=== PATIENT | male | born 1960 | race Hispanic/Latino ===

== ENCOUNTER → 2018-06-11 | Outpatient (CLI) | payer OTHER | END | disposition home or self-care (01) | LOC: OIH 13:48 | DX: Z13.6 Encounter for screening for cardiovascular disorders (principal) | CPT/HCPCS: 75571 ==

== ENCOUNTER 2020-06-12 08:30 | Inpatient (IN) | payer OTHER ==
[2020-06-12] VITALS (44 sets, daily range): BP systolic 78–164; BP diastolic 34–90
[~2020-06-12] VITALS: Ht 165.1 cm; Wt 82.2 kg
[~2020-06-12 08:30] MED LIST: 0.9%NACL 1000ML 1,000 ML IV ONE; OMEP40CA21 PO; SUCR1TAB2 PO
[2020-06-12] MEDS ORDERED: ONDA4TAB4 PO (10:49)
[2020-06-12] MEDS ORDERED: PROPOFOL 10 MG/ML 20ML VIAL IV ONE ×2 (12:16→16:06)
[2020-06-12] MEDS ORDERED: SUCCINYLCHOLINE CHLORIDE 20 MG/ML 10 ML VIAL ONE (12:32)
[2020-06-12] MEDS ORDERED: FENTANYL CITRATE PF 50 MCG/1 ML 2ML VIAL ONE (13:03)
[2020-06-12 13:29] LABS: ABG BASE EXCESS -6.5 mmol/L (-2.0-3.0); ABG HCO3 18.4 mmol/L (21.0-28.0); ABG PCO2 34 mmHg (35-48)
[2020-06-12] MEDS ORDERED: NALOXONE HCL 0.4 MG/1 ML ML ONE (14:10)
[2020-06-12] MEDS ORDERED: MEPERIDINE-PF 25 MG/ML SYG ONE (14:37)
[2020-06-12] MEDS ORDERED: ACETAMINOPHEN 325 MG TAB PO PRN (15:15)
[2020-06-12 15:58] LABS: ABG BASE EXCESS -8.2 mmol/L (-2.0-3.0); ABG OXYGEN SATURATION 82.9 % (95.0-99.0); ABG PCO2 34 mmHg (35-48)
[2020-06-12] MEDS ORDERED: ESMOLOL HCL 10 MG/ML 10 ML VIAL ONE (16:02)
[2020-06-12] MEDS ORDERED: MIDAZOLAM HCL 1 MG/ML 2ML VIAL ONE (16:06)
[2020-06-12] MEDS ORDERED: ROCURONIUM 10MG/1ML SYR 10 MG/ML ML ONE (16:07)
[2020-06-12] MEDS ORDERED: METOPROLOL TARTRATE 1 MG/ML 5ML VIAL IV ONE (16:36)
[2020-06-12] MEDS ORDERED: FENTANYL CITRATE PF 0.05 MG/ML 1,000 MCG in 0.9%NACL 100ML 100 ML IVPB STA (16:45)
[2020-06-12] MEDS ORDERED: PHENYLEPHRINE HCL 10 MG in 0.9% NACL 250ML 250 ML IV PRN (16:45)
[2020-06-12] MEDS ORDERED: PROPOFOL 1000 MG/100 ML 100 ML IV STA (16:45)
[2020-06-12 16:55] LABS: HEMATOCRIT 32.3 % (42-54); MEAN CORPUSCULAR HEMOGLOBIN 28.7 pg (27.0-33.0); MEAN CORPUSCULAR HGB CONC 30.7 g/dL (32.0-36.0); MEAN CORPUSCULAR VOLUME 93.6 fL (79-99); NUCLEATED RED BLOOD CELLS 0.5 % (0.0-0.19); PLATELET COUNT (AUTO) 315 K/uL (130-400); RED BLOOD CELL COUNT(AUTO) 3.45 MIL/uL (4.50-6.20); RED CELL DISTRIBUTION WIDTH 18.5 % (11.0-15.5)
[2020-06-12 16:58] LABS: WHITE BLOOD COUNT (AUTO) 48.3 K/uL (4.8-10.8)
[2020-06-12] MEDS ORDERED: PROPOFOL 1000 MG/100 ML 100 ML IV SCH (17:00)
[2020-06-12] MEDS: FUROSEMIDE 20MG VIAL IV SCH (17:04)
[2020-06-12 17:13] LABS: CREATININE 0.8 mg/dL (0.5-1.5); POTASSIUM 4.1 mmol/L (3.5-5.1)
[2020-06-12 17:17] LABS: ALBUMIN 2.4 g/dL (3.5-5.0); BILIRUBIN,TOTAL 0.3 mg/dL (0.2-1.0); MAGNESIUM 1.1 mg/dL (1.80-2.40); TOTAL PROTEIN, SERUM 5.8 g/dL (6.0-8.3)
[2020-06-12 17:24] LABS: BAND NEUTROPHILS % (MANUAL) 6 % (0-2); LYMPHOCYTES % (MANUAL) 4 % (22-44); MONOCYTES % (MANUAL) 2 % (2-9); SEGMENTED NEUTROPHILS % 88 % (40-70)
[2020-06-12 17:25] LABS: MAN.DIFF COMMENT-IMPRESSION MANUAL DIFFERENTIAL; PLATELET MORPHOLOGY COMMENT ADEQUATE
[2020-06-12] MEDS ORDERED: METOPROLOL TARTRATE 1 MG/ML 5ML VIAL IV SCH (18:00)
[2020-06-12] MEDS ORDERED: VASOPRESSIN 20 UNITS in 0.9%NACL 100ML 100 ML IV SCH (18:30)
[2020-06-12] MEDS: LINEZOLID 600 MG/ISO-OSM 300 ML IV SCH (18:30)
[2020-06-12 18:34] LABS: URIC ACID 8.8 mg/dL (2.6-7.2)
[2020-06-12] MEDS ORDERED: PHARMACY COMMUNICATION MISC SCH (18:45)
[2020-06-12 19:18] LABS: ABG BASE EXCESS -9.5 mmol/L (-2.0-3.0); ABG HCO3 17.4 mmol/L (21.0-28.0); ABG OXYGEN SATURATION 88.9 % (95.0-99.0); ABG PCO2 42 mmHg (35-48)
[2020-06-12] MEDS ORDERED: SODIUM BICARB 50MEQ 50ML VIAL 150 ML ONE (20:00)
[2020-06-12] MEDS ORDERED: SODIUM BICARB 50MEQ 50ML VIAL IV STA (20:03)
[2020-06-12] MEDS ORDERED: MIDAZOLAM 100MG-0.9% NS 100ML 100ML BAG IV ONE (20:45)
[2020-06-12] MEDS: MEROPENEM 1 GM VIAL IVP SCH (21:05)
[2020-06-12] MEDS ORDERED: IOHEXOL-350 75 ML VIAL IV ONE (21:16)
[2020-06-12] MEDS: MICAFUNGIN 100MG+NS 100ML 100 ML IV SCH (21:49)
[2020-06-12] MEDS: PHENYLEPHRINE 100 MG/NS 250ML IV SCH ×2 (21:58)
[2020-06-12] MEDS: VASOPRESSIN 40 UNITS in 0.9%NACL 50ML 40 ML IV SCH (22:00)
[2020-06-12] MEDS: SODIUM BICARB 50MEQ 50ML VIAL 150 MEQ in WATER FOR INJECTION,STERILE 1,000 ML IV SCH (22:58)
[2020-06-12] MEDS: FENTANYL 2500MCG+NS 250ML 250 ML IV SCH (22:59)
[2020-06-12] MEDS ORDERED: MIDAZOLAM HCL 100 MG in 0.9%NACL 50ML 100 ML IV SCH (23:15)
[2020-06-12 23:27] LABS: CREATININE 1.3 mg/dL (0.5-1.5); MAGNESIUM 1.4 mg/dL (1.80-2.40); POTASSIUM 3.5 mmol/L (3.5-5.1)
[2020-06-12 23:53] LABS: ABG BASE EXCESS -3.8 mmol/L (-2.0-3.0); ABG HCO3 22.2 mmol/L (21.0-28.0); ABG OXYGEN SATURATION 90.8 % (95.0-99.0); ABG PCO2 44 mmHg (35-48)
[2020-06-13] VITALS (32 sets, daily range): BP systolic 80–169; BP diastolic 39–87
[2020-06-13] MEDS ORDERED: LIDOCAINE HCL-MPF 1% 2ML VIAL ONE (01:07)
[2020-06-13] MEDS ORDERED: POTASSIUM CHLORIDE 20MEQ/100ML 100 ML IV ONE (01:08)
[2020-06-13] MEDS ORDERED: MAGNESIUM 2GM PREMIX 50ML 50 ML IV ONE (01:08)
[2020-06-13] MEDS: MEROPENEM 1 GM VIAL IVP SCH ×3 (01:11→17:30)
[2020-06-13] MEDS ORDERED: LIDOCAINE HCL-MPF 1% 2ML VIAL IV PRN (01:15)
[2020-06-13] MEDS ORDERED: POTASSIUM CHLORIDE 20MEQ/100ML 100 ML IV PRN (01:15)
[2020-06-13] MEDS ORDERED: 0.9%NACL 1000ML 1,000 ML IV ONE (01:18)
[2020-06-13] MEDS ORDERED: 0.9%NACL 100ML 200 ML IV ONE (01:31)
[2020-06-13] MEDS: FUROSEMIDE 20MG VIAL IV SCH ×2 (02:58→16:09)
[2020-06-13 05:16] LABS: BASOPHILS % (AUTO) 0.1 % (0.0-5.0); HEMATOCRIT 28.9 % (42-54); LYMPHOCYTES % (AUTO) 0.6 % (21.0-51.0); MEAN CORPUSCULAR HEMOGLOBIN 28.3 pg (27.0-33.0); MEAN CORPUSCULAR HGB CONC 30.1 g/dL (32.0-36.0); MEAN CORPUSCULAR VOLUME 94.1 fL (79-99); MONOCYTES % (AUTO) 2.8 % (3.0-13.0); NEUTROPHILS % (AUTO) 92.3 % (40.0-77.0); NUCLEATED RED BLOOD CELLS 0.4 % (0.0-0.19); PLATELET COUNT (AUTO) 267 K/uL (130-400); RED BLOOD CELL COUNT(AUTO) 3.07 MIL/uL (4.50-6.20); RED CELL DISTRIBUTION WIDTH 18.5 % (11.0-15.5)
[2020-06-13 05:30] LABS: WHITE BLOOD COUNT (AUTO) 53.9 K/uL (4.8-10.8)
[2020-06-13 05:33] LABS: ALBUMIN 2.1 g/dL (3.5-5.0); BILIRUBIN,TOTAL 0.3 mg/dL (0.2-1.0); CREATININE 1.5 mg/dL (0.5-1.5); MAGNESIUM 2.4 mg/dL (1.80-2.40); PHOSPHORUS 5.3 mg/dL (2.5-4.9); POTASSIUM 4.2 mmol/L (3.5-5.1); TOTAL PROTEIN, SERUM 5.3 g/dL (6.0-8.3)
[2020-06-13 05:34] LABS: INR 1.43 (0.85-1.15); PROTHROMBIN TIME 15.1 SEC (9.6-11.6)
[2020-06-13 05:46] LABS: CRP QUANTITATIVE 292.4 mg/L (0.00-9.0)
[2020-06-13] MEDS: LINEZOLID 600 MG/ISO-OSM 300 ML IV SCH ×2 (06:40→19:16)
[2020-06-13 06:47] LABS: ABG BASE EXCESS -0.5 mmol/L (-2.0-3.0); ABG HCO3 27.1 mmol/L (21.0-28.0); ABG OXYGEN SATURATION 91.3 % (95.0-99.0); ABG PCO2 56 mmHg (35-48)
[2020-06-13] MEDS: FENTANYL 2500MCG+NS 250ML 250 ML IV SCH (06:54)
[2020-06-13] MEDS: VASOPRESSIN 40 UNITS in 0.9%NACL 50ML 40 ML IV SCH (06:55)
[2020-06-13] MEDS ORDERED: ENOXAPARIN SODIUM 40 MG/0.4 ML SYRINGE SQ SCH (09:00)
[2020-06-13] MEDS ORDERED: ENOXAPARIN SODIUM 30 MG/0.3 ML SQ SCH (09:00)
[2020-06-13] MEDS ORDERED: PANTOPRAZOLE 40 MG/VIAL IVP SCH (09:00)
[2020-06-13] MEDS ORDERED: IOHEXOL-350 75 ML VIAL IV ONE (09:08)
[2020-06-13] MEDS ORDERED: PHARMACY COMMUNICATION MISC SCH ×2 (12:15→17:00)
[2020-06-13] MEDS ORDERED: HEPARIN 25,000 UNITS/250ML D5W 250 ML IV PRN (12:30)
[2020-06-13] MEDS: HYDROCORTISONE SOD SUCCINATE 100 MG/2 ML VIAL IV SCH ×2 (12:49→17:30)
[2020-06-13 14:10] LABS: INR 1.76 (0.85-1.15); PROTHROMBIN TIME 18.2 SEC (9.6-11.6)
[2020-06-13 14:12] LABS: PARTIAL THROMBOPLASTIN TIME 35.7 SEC (26.3-35.5)
[2020-06-13] MEDS ORDERED: NOREPINEPHRIN 4MG/NS 250ML 250 ML IV SCH (16:15)
[2020-06-13] MEDS: SODIUM BICARB 50MEQ 50ML VIAL 150 MEQ in WATER FOR INJECTION,STERILE 1,000 ML IV SCH (16:26)
[2020-06-13 16:41] LABS: BASOPHILS % (AUTO) 0.1 % (0.0-5.0); HEMATOCRIT 32.5 % (42-54); LYMPHOCYTES % (AUTO) 0.6 % (21.0-51.0); MEAN CORPUSCULAR HEMOGLOBIN 28.1 pg (27.0-33.0); MEAN CORPUSCULAR HGB CONC 29.8 g/dL (32.0-36.0); MEAN CORPUSCULAR VOLUME 94.2 fL (79-99); NEUTROPHILS % (AUTO) 92.7 % (40.0-77.0); NUCLEATED RED BLOOD CELLS 0.3 % (0.0-0.19); PLATELET COUNT (AUTO) 277 K/uL (130-400); RED BLOOD CELL COUNT(AUTO) 3.45 MIL/uL (4.50-6.20); RED CELL DISTRIBUTION WIDTH 18.6 % (11.0-15.5)
[2020-06-13 16:51] LABS: WHITE BLOOD COUNT (AUTO) 46.3 K/uL (4.8-10.8)
[2020-06-13 16:57] LABS: CREATININE 1.2 mg/dL (0.5-1.5); POTASSIUM 4.1 mmol/L (3.5-5.1)
[2020-06-13 17:01] LABS: ALBUMIN 2.2 g/dL (3.5-5.0); BILIRUBIN,TOTAL 0.4 mg/dL (0.2-1.0)
[2020-06-13] MEDS ORDERED: ALBUMIN (HUMAN) 25% 50 ML IV SCH (17:17)
[2020-06-13 17:30] LABS: BAND NEUTROPHILS % (MANUAL) 12 % (0-2); LYMPHOCYTES % (MANUAL) 1 % (22-44); MAN.DIFF COMMENT-IMPRESSION MANUAL DIFFERENTIAL; MONOCYTES % (MANUAL) 3 % (2-9); SEGMENTED NEUTROPHILS % 84 % (40-70)
[2020-06-13 19:13] LABS: INR 2.18 (0.85-1.15); PARTIAL THROMBOPLASTIN TIME 68.5 SEC (26.3-35.5); PROTHROMBIN TIME 22.1 SEC (9.6-11.6)
[2020-06-13] MEDS ORDERED: PHARMACY COMMUNICATION MISC STA (19:47)
[2020-06-13] MEDS: PANTOPRAZOLE 40 MG/VIAL IVP SCH (21:50)
[2020-06-13] MEDS: MICAFUNGIN 100MG+NS 100ML 100 ML IV SCH (21:50)
[2020-06-13] MEDS ORDERED: 0.9% NACL 250ML 250 ML IV ONE (21:54)
[2020-06-13] MEDS: PHENYLEPHRINE 100 MG/NS 250ML IV SCH ×2 (23:04)
[2020-06-14] VITALS (35 sets, daily range): BP systolic 81–137; BP diastolic 46–84
[2020-06-14] MEDS ORDERED: 0.9%NACL 100ML 100 ML IV ONE (01:17)
[2020-06-14] MEDS: MEROPENEM 1 GM VIAL IVP SCH ×3 (01:19→18:15)
[2020-06-14] MEDS: HYDROCORTISONE SOD SUCCINATE 100 MG/2 ML VIAL IV SCH ×4 (01:19→18:15)
[2020-06-14 02:05] LABS: BASOPHILS % (AUTO) 0.4 % (0.0-5.0); HEMATOCRIT 24.9 % (42-54); LYMPHOCYTES % (AUTO) 0.9 % (21.0-51.0); MEAN CORPUSCULAR HEMOGLOBIN 28.8 pg (27.0-33.0); MEAN CORPUSCULAR HGB CONC 30.9 g/dL (32.0-36.0); MEAN CORPUSCULAR VOLUME 93.3 fL (79-99); MONOCYTES % (AUTO) 3.1 % (3.0-13.0); NUCLEATED RED BLOOD CELLS 0.3 % (0.0-0.19); PLATELET COUNT (AUTO) 231 K/uL (130-400); RED BLOOD CELL COUNT(AUTO) 2.67 MIL/uL (4.50-6.20); RED CELL DISTRIBUTION WIDTH 18.6 % (11.0-15.5)
[2020-06-14 02:10] LABS: CREATININE 1.1 mg/dL (0.5-1.5); MAGNESIUM 1.7 mg/dL (1.80-2.40); POTASSIUM 3.1 mmol/L (3.5-5.1)
[2020-06-14 02:26] LABS: WHITE BLOOD COUNT (AUTO) 38.1 K/uL (4.8-10.8)
[2020-06-14] MEDS: SODIUM BICARB 50MEQ 50ML VIAL 150 MEQ in WATER FOR INJECTION,STERILE 1,000 ML IV SCH ×2 (02:32→20:29)
[2020-06-14] MEDS: MAGNESIUM 2GM PREMIX 50ML 50 ML IV PRN (02:40)
[2020-06-14] MEDS: POTASSIUM CHLORIDE 20MEQ/100ML 100 ML IV PRN ×2 (02:41→03:43)
[2020-06-14] MEDS: FENTANYL 2500MCG+NS 250ML 250 ML IV SCH ×2 (03:52→21:36)
[2020-06-14] MEDS: LINEZOLID 600 MG/ISO-OSM 300 ML IV SCH ×2 (05:26→18:17)
[2020-06-14 07:07] LABS: ABG BASE EXCESS 4.4 mmol/L (-2.0-3.0); ABG HCO3 31.8 mmol/L (21.0-28.0); ABG OXYGEN SATURATION 99.5 % (95.0-99.0); ABG PCO2 58 mmHg (35-48)
[2020-06-14] MEDS: PANTOPRAZOLE 40 MG/VIAL IVP SCH ×2 (08:26→20:28)
[2020-06-14 09:10] LABS: BASOPHILS % (AUTO) 0.4 % (0.0-5.0); HEMATOCRIT 24.7 % (42-54); LYMPHOCYTES % (AUTO) 0.5 % (21.0-51.0); MEAN CORPUSCULAR HEMOGLOBIN 28.5 pg (27.0-33.0); MEAN CORPUSCULAR HGB CONC 31.2 g/dL (32.0-36.0); MEAN CORPUSCULAR VOLUME 91.5 fL (79-99); MONOCYTES % (AUTO) 2.7 % (3.0-13.0); NEUTROPHILS % (AUTO) 92.7 % (40.0-77.0); NUCLEATED RED BLOOD CELLS 0.1 % (0.0-0.19); PLATELET COUNT (AUTO) 242 K/uL (130-400); RED CELL DISTRIBUTION WIDTH 18.7 % (11.0-15.5)
[2020-06-14] MEDS ORDERED: FUROSEMIDE 20MG VIAL IVP SCH (09:15)
[2020-06-14 09:23] LABS: CREATININE 1.1 mg/dL (0.5-1.5)
[2020-06-14 09:27] LABS: BILIRUBIN,TOTAL 0.3 mg/dL (0.2-1.0); TOTAL PROTEIN, SERUM 5.5 g/dL (6.0-8.3)
[2020-06-14 09:28] LABS: WHITE BLOOD COUNT (AUTO) 34.6 K/uL (4.8-10.8)
[2020-06-14] MEDS ORDERED: LACTATED RINGERS 1000ML 1,000 ML IV ONE (10:09)
[2020-06-14 11:32] LABS: MAGNESIUM 2.6 mg/dL (1.80-2.40); PHOSPHORUS 4.5 mg/dL (2.5-4.9)
[2020-06-14 15:09] LABS: INR 1.47 (0.85-1.15); PROTHROMBIN TIME 15.5 SEC (9.6-11.6)
[2020-06-14 15:10] LABS: PARTIAL THROMBOPLASTIN TIME 53.6 SEC (26.3-35.5)
[2020-06-14] MEDS: VASOPRESSIN 40 UNITS in 0.9%NACL 50ML 40 ML IV SCH (16:24)
[2020-06-14] MEDS: DOCUSATE NA 100MG/10ML UDCUP GT SCH (16:33)
[2020-06-14 18:48] LABS: BASOPHILS % (AUTO) 0.3 % (0.0-5.0); HEMATOCRIT 22.4 % (42-54); LYMPHOCYTES % (AUTO) 0.7 % (21.0-51.0); MEAN CORPUSCULAR HEMOGLOBIN 28.6 pg (27.0-33.0); MEAN CORPUSCULAR HGB CONC 31.3 g/dL (32.0-36.0); MEAN CORPUSCULAR VOLUME 91.4 fL (79-99); MONOCYTES % (AUTO) 2.4 % (3.0-13.0); NEUTROPHILS % (AUTO) 94.3 % (40.0-77.0); PLATELET COUNT (AUTO) 207 K/uL (130-400); RED BLOOD CELL COUNT(AUTO) 2.45 MIL/uL (4.50-6.20); RED CELL DISTRIBUTION WIDTH 18.6 % (11.0-15.5)
[2020-06-14] MEDS ORDERED: PHARMACY COMMUNICATION MISC SCH (19:45)
[2020-06-14] MEDS: MICAFUNGIN 100MG+NS 100ML 100 ML IV SCH (20:28)
[2020-06-15] VITALS (36 sets, daily range): BP systolic 88–153; BP diastolic 53–107
[2020-06-15] MEDS: HYDROCORTISONE SOD SUCCINATE 100 MG/2 ML VIAL IV SCH ×4 (01:04→17:35)
[2020-06-15] MEDS: MEROPENEM 1 GM VIAL IVP SCH (01:05)
[2020-06-15 03:58] LABS: BASOPHILS % (AUTO) 0.2 % (0.0-5.0); HEMATOCRIT 27.5 % (42-54); LYMPHOCYTES % (AUTO) 0.7 % (21.0-51.0); MEAN CORPUSCULAR HEMOGLOBIN 28.3 pg (27.0-33.0); MEAN CORPUSCULAR HGB CONC 31.6 g/dL (32.0-36.0); MEAN CORPUSCULAR VOLUME 89.6 fL (79-99); MONOCYTES % (AUTO) 2.6 % (3.0-13.0); NEUTROPHILS % (AUTO) 93.9 % (40.0-77.0); NUCLEATED RED BLOOD CELLS 0.1 % (0.0-0.19); PLATELET COUNT (AUTO) 198 K/uL (130-400); RED BLOOD CELL COUNT(AUTO) 3.07 MIL/uL (4.50-6.20); WHITE BLOOD COUNT (AUTO) 21.9 K/uL (4.8-10.8)
[2020-06-15 04:18] LABS: ALBUMIN 1.8 g/dL (3.5-5.0); BILIRUBIN,TOTAL 0.4 mg/dL (0.2-1.0); CREATININE 0.8 mg/dL (0.5-1.5); MAGNESIUM 2.1 mg/dL (1.80-2.40); POTASSIUM 3.8 mmol/L (3.5-5.1); TOTAL PROTEIN, SERUM 5.1 g/dL (6.0-8.3)
[2020-06-15 04:23] LABS: INR 1.32 (0.85-1.15)
[2020-06-15 04:25] LABS: PARTIAL THROMBOPLASTIN TIME 66.9 SEC (26.3-35.5)
[2020-06-15] MEDS: LINEZOLID 600 MG/ISO-OSM 300 ML IV SCH (05:41)
[2020-06-15] MEDS: POTASSIUM CHLORIDE 20MEQ/100ML 100 ML IV PRN (05:41)
[2020-06-15 07:42] LABS: ABG BASE EXCESS 9.7 mmol/L (-2.0-3.0); ABG OXYGEN SATURATION 94.3 % (95.0-99.0); ABG PCO2 54 mmHg (35-48)
[2020-06-15] MEDS: PANTOPRAZOLE 40 MG/VIAL IVP SCH ×2 (08:09→21:55)
[2020-06-15] MEDS: PROPOFOL 1000 MG/100 ML 100 ML IV SCH ×3 (08:43→18:39)
[2020-06-15] MEDS: DOCUSATE NA 100MG/10ML UDCUP GT SCH (09:00)
[2020-06-15] MEDS: ZOSYN 3.375GM+NS 50ML 50 ML IV SCH ×2 (10:12→17:35)
[2020-06-15] MEDS: FUROSEMIDE 20MG VIAL IVP SCH ×2 (10:12→21:55)
[2020-06-15] MEDS: SENNOSIDES 8.6 MG TABLET GT SCH (10:12)
[2020-06-15] MEDS: SODIUM BICARB 50MEQ 50ML VIAL 150 MEQ in WATER FOR INJECTION,STERILE 1,000 ML IV SCH (11:09)
[2020-06-15] MEDS ORDERED: IODIXANOL 320 MG/ML 100 ML VIAL ONE (14:18)
[2020-06-15] MEDS ORDERED: LIDOCAINE HCL 1% MDV 50ML VIAL ONE (14:18)
[2020-06-15 16:52] LABS: HEMATOCRIT 26.2 % (42-54)
[2020-06-15] MEDS ORDERED: PHARMACY COMMUNICATION MISC SCH (19:45)
[2020-06-15] MEDS: VASOPRESSIN 40 UNITS in 0.9%NACL 50ML 40 ML IV SCH (21:57)
[2020-06-16] VITALS (29 sets, daily range): BP systolic 91–155; BP diastolic 55–106
[2020-06-16] MEDS: HYDROCORTISONE SOD SUCCINATE 100 MG/2 ML VIAL IV SCH ×4 (00:49→18:06)
[2020-06-16] MEDS: ZOSYN 3.375GM+NS 50ML 50 ML IV SCH ×3 (00:49→18:06)
[2020-06-16] MEDS: SODIUM BICARB 50MEQ 50ML VIAL 150 MEQ in WATER FOR INJECTION,STERILE 1,000 ML IV SCH (02:43)
[2020-06-16 03:31] LABS: BASOPHILS % (AUTO) 0.1 % (0.0-5.0); LYMPHOCYTES % (AUTO) 1.1 % (21.0-51.0); MEAN CORPUSCULAR HGB CONC 31.9 g/dL (32.0-36.0); MEAN CORPUSCULAR VOLUME 87.8 fL (79-99); MONOCYTES % (AUTO) 2.7 % (3.0-13.0); NEUTROPHILS % (AUTO) 95.4 % (40.0-77.0); NUCLEATED RED BLOOD CELLS 0.2 % (0.0-0.19); PLATELET COUNT (AUTO) 144 K/uL (130-400); RED BLOOD CELL COUNT(AUTO) 2.96 MIL/uL (4.50-6.20); RED CELL DISTRIBUTION WIDTH 18.4 % (11.0-15.5); WHITE BLOOD COUNT (AUTO) 12.3 K/uL (4.8-10.8)
[2020-06-16 03:44] LABS: ALBUMIN 1.7 g/dL (3.5-5.0); BILIRUBIN,TOTAL 0.4 mg/dL (0.2-1.0); CREATININE 0.7 mg/dL (0.5-1.5); MAGNESIUM 2.2 mg/dL (1.80-2.40); POTASSIUM 3.3 mmol/L (3.5-5.1); TOTAL PROTEIN, SERUM 4.5 g/dL (6.0-8.3)
[2020-06-16] MEDS: POTASSIUM CHLORIDE 20MEQ/100ML 100 ML IV PRN ×3 (03:56→11:33)
[2020-06-16] MEDS: FENTANYL 2500MCG+NS 250ML 250 ML IV SCH (06:05)
[2020-06-16 06:53] LABS: ABG OXYGEN SATURATION 92.6 % (95.0-99.0); ABG PCO2 53 mmHg (35-48)
[2020-06-16] MEDS ORDERED: POTASSIUM CHLORIDE 10% ELIXIR 20 MEQ/15 ML UDCUP NG SCH (07:30)
[2020-06-16] MEDS: FUROSEMIDE 20MG VIAL IVP SCH ×2 (10:07→20:38)
[2020-06-16] MEDS: PANTOPRAZOLE 40 MG/VIAL IVP SCH ×2 (10:07→20:38)
[2020-06-16] MEDS ORDERED: FENTANYL CITRATE PF 50 MCG/1 ML 2ML VIAL IVP PRN (11:15)
[2020-06-16] MEDS: ONDANSETRON 4MG INJ IVP PRN (12:31)
[2020-06-16] MEDS: SENNOSIDES 8.6 MG TABLET GT SCH (18:07)
[2020-06-16] MEDS: KETOROLAC 15MG/ML VIAL (15MG/ML) IV PRN (18:34)
[2020-06-16] MEDS: LABETALOL 20MG SYG IV PRN (18:35)
[2020-06-16] MEDS: DOCUSATE NA 100MG/10ML UDCUP GT SCH (18:40)
[2020-06-17] VITALS (18 sets, daily range): BP systolic 121–156; BP diastolic 84–127
[2020-06-17] MEDS: HYDROCORTISONE SOD SUCCINATE 100 MG/2 ML VIAL IV SCH ×2 (00:20→06:08)
[2020-06-17] MEDS: ZOSYN 3.375GM+NS 50ML 50 ML IV SCH ×3 (00:21→16:52)
[2020-06-17] MEDS: LABETALOL 20MG SYG IV PRN ×2 (00:22→06:09)
[2020-06-17 06:23] LABS: CREATININE 0.7 mg/dL (0.5-1.5); POTASSIUM 3.3 mmol/L (3.5-5.1)
[2020-06-17 06:46] LABS: CRP QUANTITATIVE 171.3 mg/L (0.00-9.0)
[2020-06-17] MEDS ORDERED: KCL 20 MEQ ERTAB PO SCH (08:00)
[2020-06-17] MEDS ORDERED: POTASSIUM CHLORIDE 10% ELIXIR 20 MEQ/15 ML UDCUP PO SCH (08:00)
[2020-06-17] MEDS: DOCUSATE NA 100MG/10ML UDCUP GT SCH (09:01)
[2020-06-17] MEDS: METOPROLOL TARTRATE 25 MG TAB PO SCH ×2 (09:02→20:40)
[2020-06-17] MEDS: SENNOSIDES 8.6 MG TABLET GT SCH (09:02)
[2020-06-17] MEDS: PANTOPRAZOLE 40 MG/VIAL IVP SCH ×2 (09:03→20:39)
[2020-06-17] MEDS: FUROSEMIDE 20MG VIAL IVP SCH ×2 (09:03→20:40)
[2020-06-17] MEDS: LOSARTAN 50 MG TABLET PO SCH (09:04)
[2020-06-17] MEDS: KETOROLAC 15MG/ML VIAL (15MG/ML) IV PRN ×2 (10:48→16:41)
[2020-06-17] MEDS ORDERED: METOPROLOL TARTRATE 1 MG/ML 5ML VIAL IV PRN (11:30)
[2020-06-17] MEDS: HYDRALAZINE 25MG TABLET PO SCH ×2 (11:50→20:40)
[2020-06-17] MEDS ORDERED: FENTANYL CITRATE PF 50 MCG/1 ML 2ML VIAL IVP PRN (14:30)
[2020-06-17] MEDS: MORPHINE 2 MG SYG IVP PRN (19:44)
[2020-06-18] VITALS (7 sets, daily range): BP systolic 135–150; BP diastolic 80–106
[2020-06-18] MEDS: ZOSYN 3.375GM+NS 50ML 50 ML IV SCH ×3 (00:39→17:03)
[2020-06-18] MEDS: MORPHINE 2 MG SYG IVP PRN ×2 (00:40→08:45)
[2020-06-18 05:42] LABS: BASOPHILS % (AUTO) 0.1 % (0.0-5.0); HEMATOCRIT 29.5 % (42-54); LYMPHOCYTES % (AUTO) 0.6 % (21.0-51.0); MEAN CORPUSCULAR HEMOGLOBIN 28.6 pg (27.0-33.0); MEAN CORPUSCULAR HGB CONC 31.9 g/dL (32.0-36.0); MEAN CORPUSCULAR VOLUME 89.7 fL (79-99); MONOCYTES % (AUTO) 4.2 % (3.0-13.0); NEUTROPHILS % (AUTO) 94.3 % (40.0-77.0); NUCLEATED RED BLOOD CELLS 0.1 % (0.0-0.19); PLATELET COUNT (AUTO) 127 K/uL (130-400); RED BLOOD CELL COUNT(AUTO) 3.29 MIL/uL (4.50-6.20); RED CELL DISTRIBUTION WIDTH 18.2 % (11.0-15.5); WHITE BLOOD COUNT (AUTO) 21.9 K/uL (4.8-10.8)
[2020-06-18 06:24] LABS: ALBUMIN 1.8 g/dL (3.5-5.0); BILIRUBIN,TOTAL 0.6 mg/dL (0.2-1.0); CREATININE 0.5 mg/dL (0.5-1.5); MAGNESIUM 1.7 mg/dL (1.80-2.40); TOTAL PROTEIN, SERUM 4.7 g/dL (6.0-8.3)
[2020-06-18 06:33] LABS: POTASSIUM 2.9 mmol/L (3.5-5.1)
[2020-06-18] MEDS: POTASSIUM CHLORIDE 20MEQ/100ML 100 ML IV PRN ×3 (06:36→21:26)
[2020-06-18] MEDS: PANTOPRAZOLE 40 MG/VIAL IVP SCH ×2 (08:41→21:25)
[2020-06-18] MEDS: METOPROLOL TARTRATE 25 MG TAB PO SCH ×2 (08:42→21:25)
[2020-06-18] MEDS: FUROSEMIDE 20MG VIAL IVP SCH (08:42)
[2020-06-18] MEDS: LOSARTAN 50 MG TABLET PO SCH (08:42)
[2020-06-18] MEDS: HYDRALAZINE 25MG TABLET PO SCH ×2 (08:43→21:26)
[2020-06-18] MEDS: SENNOSIDES 8.6 MG TABLET GT SCH (08:43)
[2020-06-18] MEDS: MAGNESIUM 2GM PREMIX 50ML 50 ML IV PRN (08:44)
[2020-06-18] MEDS: DOCUSATE NA 100MG/10ML UDCUP GT SCH (09:00)
[2020-06-18] MEDS ORDERED: HYDROMORPHONE 1 MG INJ IVP PRN (12:00)
[2020-06-18] MEDS: MORPHINE 4 MG SYG IV PRN (12:14)
[2020-06-18] MEDS: ONDANSETRON 4MG INJ IVP PRN (23:29)
[2020-06-19] MEDS: ZOSYN 3.375GM+NS 50ML 50 ML IV SCH ×3 (01:03→16:38)
[2020-06-19] MEDS: MORPHINE 4 MG SYG IV PRN ×3 (01:04→16:38)
[2020-06-19 06:30] LABS: HEMATOCRIT 33.8 % (42-54); MEAN CORPUSCULAR HEMOGLOBIN 28.2 pg (27.0-33.0); MEAN CORPUSCULAR HGB CONC 30.8 g/dL (32.0-36.0); MEAN CORPUSCULAR VOLUME 91.6 fL (79-99); NUCLEATED RED BLOOD CELLS 0.1 % (0.0-0.19); PLATELET COUNT (AUTO) 200 K/uL (130-400); RED BLOOD CELL COUNT(AUTO) 3.69 MIL/uL (4.50-6.20); RED CELL DISTRIBUTION WIDTH 18.6 % (11.0-15.5); WHITE BLOOD COUNT (AUTO) 25.5 K/uL (4.8-10.8)
[2020-06-19 06:42] LABS: BILIRUBIN,TOTAL 0.8 mg/dL (0.2-1.0); CREATININE 0.7 mg/dL (0.5-1.5); POTASSIUM 3.3 mmol/L (3.5-5.1); TOTAL PROTEIN, SERUM 5.3 g/dL (6.0-8.3)
[2020-06-19] MEDS ORDERED: DEXTROSE 5%-WATER 1,000 ML IV SCH (07:00)
[2020-06-19 07:57] LABS: LYMPHOCYTES % (MANUAL) 1 % (22-44); MONOCYTES % (MANUAL) 5 % (2-9); SEGMENTED NEUTROPHILS % 94 % (40-70)
[2020-06-19 07:59] LABS: MAN.DIFF COMMENT-IMPRESSION MANUAL DIFFERENTIAL
[2020-06-19 08:00] VITALS: BP 123/87
[2020-06-19 08:00] LABS: PLATELET MORPHOLOGY COMMENT SLIGHTLY DECREASED
[2020-06-19] MEDS: LOSARTAN 50 MG TABLET PO SCH (09:22)
[2020-06-19] MEDS: HYDRALAZINE 25MG TABLET PO SCH ×2 (09:22→20:46)
[2020-06-19] MEDS: SENNOSIDES 8.6 MG TABLET GT SCH (09:22)
[2020-06-19] MEDS: METOPROLOL TARTRATE 25 MG TAB PO SCH ×2 (09:22→20:46)
[2020-06-19] MEDS: DOCUSATE NA 100MG/10ML UDCUP GT SCH (09:23)
[2020-06-19] MEDS: PANTOPRAZOLE 40 MG/VIAL IVP SCH ×2 (09:23→20:45)
[2020-06-19 12:00] VITALS: BP 122/81
[2020-06-19 16:17] VITALS: BP 141/97
[2020-06-19 20:00] VITALS: BP 105/74
[2020-06-19 23:54] VITALS: BP 106/75
[2020-06-20] MEDS: ZOSYN 3.375GM+NS 50ML 50 ML IV SCH ×3 (01:21→16:09)
[2020-06-20] MEDS: MORPHINE 4 MG SYG IV PRN ×3 (01:45→15:10)
[2020-06-20 03:44] VITALS: BP 117/68
[2020-06-20 05:19] LABS: BASOPHILS % (AUTO) 0.1 % (0.0-5.0); EOSINOPHILS % (AUTO) 0.1 % (0.0-8.0); LYMPHOCYTES % (AUTO) 1.2 % (21.0-51.0); MEAN CORPUSCULAR HEMOGLOBIN 27.5 pg (27.0-33.0); MEAN CORPUSCULAR HGB CONC 30.3 g/dL (32.0-36.0); MEAN CORPUSCULAR VOLUME 90.9 fL (79-99); NEUTROPHILS % (AUTO) 91.6 % (40.0-77.0); NUCLEATED RED BLOOD CELLS 0.1 % (0.0-0.19); PLATELET COUNT (AUTO) 181 K/uL (130-400); RED BLOOD CELL COUNT(AUTO) 3.74 MIL/uL (4.50-6.20); RED CELL DISTRIBUTION WIDTH 18.6 % (11.0-15.5); WHITE BLOOD COUNT (AUTO) 21.6 K/uL (4.8-10.8)
[2020-06-20 05:27] LABS: CREATININE 0.9 mg/dL (0.5-1.5); POTASSIUM 3.1 mmol/L (3.5-5.1)
[2020-06-20] MEDS: POTASSIUM CHLORIDE 20MEQ/100ML 100 ML IV PRN ×2 (05:54→06:55)
[2020-06-20] MEDS: PANTOPRAZOLE 40 MG/VIAL IVP SCH (08:10)
[2020-06-20] MEDS: DOCUSATE NA 100MG/10ML UDCUP GT SCH (08:10)
[2020-06-20] MEDS: HYDRALAZINE 25MG TABLET PO SCH (08:11)
[2020-06-20] MEDS: METOPROLOL TARTRATE 25 MG TAB PO SCH (08:12)
[2020-06-20] MEDS: SENNOSIDES 8.6 MG TABLET GT SCH (08:15)
[2020-06-20] MEDS: LOSARTAN 50 MG TABLET PO SCH (08:15)
[2020-06-20 08:16] VITALS: BP 114/78
[2020-06-20] MEDS ORDERED: DEXTROSE 5%-WATER 1,000 ML IV ONE (08:33)
[2020-06-20 11:54] VITALS: BP 85/59
[2020-06-20 16:00] VITALS: BP 102/70
[2020-06-20] MEDS ORDERED: PHARMACY COMMUNICATION MISC SCH (17:45)
[2020-06-20] MEDS ORDERED: HEPARIN PF LOCK 500 UNIT/5ML IV SCH (17:45)
[2020-06-20 19:53] VITALS: BP 89/51
== END 2020-06-20 20:44 | disposition hospice, home (50) | DRG 871 ==
LOC: DAH 08:30 → ENDO 08:30 → DAHIP 08:31 → 2DH 16:20 → 4CH 06-17 15:48
PROVIDERS: ADMIT Family Medicine; ATTEND Family Medicine
PROC: 0BH17EZ Insertion of Endotracheal Airway into Trachea, Via Natural or Artificial Opening (ICD-10-PCS; 2020-06-12)
PROC: 5A09357 Assistance with Respiratory Ventilation, Less than 24 Consecutive Hours, Continuous Positive Airway Pressure (ICD-10-PCS; 2020-06-12)
PROC: 5A1945Z Respiratory Ventilation, 24-96 Consecutive Hours (ICD-10-PCS; 2020-06-12)
PROC: 0D758DZ Dilation of Esophagus with Intraluminal Device, Via Natural or Artificial Opening Endoscopic (ICD-10-PCS; 2020-06-12)
PROC: 30233N1 Transfusion of Nonautologous Red Blood Cells into Peripheral Vein, Percutaneous Approach (ICD-10-PCS; principal; 2020-06-14)
PROC: 06H03DZ Insertion of Intraluminal Device into Inferior Vena Cava, Percutaneous Approach (ICD-10-PCS; 2020-06-15)
PROC: 0W993ZZ Drainage of Right Pleural Cavity, Percutaneous Approach (ICD-10-PCS; 2020-06-15)
DX: A41.9 Sepsis, unspecified organism (principal); R65.21 Severe sepsis with septic shock; J69.0 Pneumonitis due to inhalation of food and vomit; E43 Unspecified severe protein-calorie malnutrition; I26.99 Other pulmonary embolism without acute cor pulmonale; J80 Acute respiratory distress syndrome; C16.9 Malignant neoplasm of stomach, unspecified; C16.0 Malignant neoplasm of cardia; J91.0 Malignant pleural effusion; J98.11 Atelectasis; C78.02 Secondary malignant neoplasm of left lung; C78.01 Secondary malignant neoplasm of right lung; R18.8 Other ascites; C15.9 Malignant neoplasm of esophagus, unspecified; C79.51 Secondary malignant neoplasm of bone; E87.0 Hyperosmolality and hypernatremia; Z51.5 Encounter for palliative care; K22.2 Esophageal obstruction; D64.9 Anemia, unspecified; R62.7 Adult failure to thrive; E11.9 Type 2 diabetes mellitus without complications; G89.3 Neoplasm related pain (acute) (chronic); D72.810 Lymphocytopenia; E78.2 Mixed hyperlipidemia; I10 Essential (primary) hypertension; Z20.822 Contact with and (suspected) exposure to COVID-19; I07.1 Rheumatic tricuspid insufficiency; Z68.30 Body mass index [BMI] 30.0-30.9, adult; B96.1 Klebsiella pneumoniae [K. pneumoniae] as the cause of diseases classified elsewhere
CPT/HCPCS: 31500; 36415; 36600; 37191; 43242; 70450; 71045; 71275; 74018; 74176; 74360; 80048; 80053; 82435; 82728; 82803; 82947; 82948; 83605; 83615; 83735; 83880; 84100; 84132; 84145; 84295; 84484; 84550; 85014; 85018; 85025; 85378; 85610; 85730; 86140; 86850; 86900; 86901; 86922; 87040; 87071; 87077; 87186; 87205; 92610; 93005; 93306; 93970; 94002; 94003; 94660; 97039; A4606; C1769; C9113; C9803; G0378; J0330; J1170; J1642; J1644; J1650; J1720; J1885; J1940; J2020; J2175; J2185; J2248; J2250; J2270; J2310; J2370; J2405; J2543; J2704; J3010; J3475; J3480; J3490; J7030; J7050; J7070; J7120; P9016; P9047; Q9967; U0003